=== PATIENT | male | born 1955 | race Caucasian/White ===

== ENCOUNTER 2023-03-21 13:07 | Observation (INO) ==
[2023-03-21 13:33] LABS: ABS Lymphocytes 1.7 10^3/uL (1.0-4.8); ABS Monocytes 0.6 10^3/uL (0.0-1.1); ABS Neutrophils 5.4 10^3/uL (1.5-7.6); Eosinophil % 0.4 %; Hematocrit 39.7 % (38-53); Hemoglobin 13.9 g/dL (13.2-16.3); Lymphocyte % 21.9 %; Mean Corpuscular Hemoglobin 28.8 pg (27-33); Mean Corpuscular Volume 82.5 fL (80-97); Mean Platelet Volume 8.1 fL (7.5-11.2); Nucleated Red Blood Cells % 0.1 /100 WBC (0.0-0.4); Platelet Count 235 10^3/uL (150-450); Red Blood Count 4.81 10^6/uL (4.06-5.63); Red Cell Distribution Width 14.1 % (12-17); White Blood Count 7.8 10^3/uL (3.6-10.2)
[2023-03-21 13:38] LABS: INR 1.02 (0.83-1.13)
[2023-03-21 13:50] LABS: Albumin 4.5 g/dL (3.2-5.2); Albumin/Globulin Ratio 1.9 (1-3); Calcium 9.7 mg/dL (8.6-10.3); Creatinine, Serum 0.96 mg/dL (0.67-1.17); Globulin 2.4 g/dL (2-4); Potassium 3.8 mmol/L (3.5-5.0); Total Bilirubin 0.5 mg/dL (0.2-1.0); Total Protein 6.9 g/dL (6.4-8.9); eGFR CKD-EPI 87.2 (>60)
[2023-03-21 15:02] LABS: High Sensitivity Troponin 1 Hr 7 pg/mL (<20)
[2023-03-21 19:44] LABS: ABS Basophils 0.1 10^3/uL (0.0-0.1); ABS Lymphocytes 1.9 10^3/uL (1.0-4.8); ABS Monocytes 0.7 10^3/uL (0.0-1.1); ABS Neutrophils 5.3 10^3/uL (1.5-7.6); ABS Nucleated RBC 0.01 10^3/ul; Eosinophil % 0.6 %; Hematocrit 40.9 % (38-53); Hemoglobin 14.1 g/dL (13.2-16.3); Lymphocyte % 23.5 %; Mean Corpuscular Hemoglobin 28.8 pg (27-33); Mean Corpuscular Hgb Conc 34.6 g/dL (31-36); Mean Corpuscular Volume 83.2 fL (80-97); Nucleated Red Blood Cells % 0.1 /100 WBC (0.0-0.4); Platelet Count 242 10^3/uL (150-450); Red Blood Count 4.91 10^6/uL (4.06-5.63); Red Cell Distribution Width 14.1 % (12-17)
[2023-03-21] MEDS ORDERED: Iohexol 350 (CONTRAST) 500 ML MDV IV ONE (20:15)
[2023-03-21 21:34] LABS: High Sensitivity Troponin 1 Hr 7 pg/mL (<20)
[2023-03-22] MEDS ORDERED: Famotidine IV 10 MG/ML 2 ml VIAL (20 mg) IV SLOW PU ONE (01:14)
[2023-03-22] MEDS: Heparin 5000 UNITS/ML 1 mL VIAL SUBCUT SCH ×2 (02:27→09:28)
[2023-03-22 06:16] LABS: High Sensitivity Troponin 1 Hr 7 pg/mL (<20)
[2023-03-22 17:20] VITALS: BP 146/86
== END 2023-03-22 18:19 | disposition home or self-care (01) ==
LOC: ED 13:07 → EDHOLD 13:07
PROVIDERS: ADMIT Internal Medicine; ATTEND Internal Medicine